=== PATIENT | female | born 1945 | race Caucasian/White ===

== ENCOUNTER 2020-11-07 10:17 | Emergency (ER) | payer MEDICARE, MEDICAID ==
[~2020-11-07] VITALS: Ht 152.4 cm; Wt 61.4 kg
[~2020-11-07 10:17] MED LIST: AMOXICILLIN 50500 MG PO; ASPIRIN 81M81 MG/TA2 PO; EPA FISH OIL1000 MG PO
[2020-11-07 10:33] VITALS: TEMP 97.5
[2020-11-07] MEDS ORDERED: MOTRIN 200200 MG/TAB PO (10:38)
[2020-11-07 11:10] LABS: BASO % 0.3 % (0.0-2.0); EOS # 0.1 (0.0-0.7); EOS % 0.7 % (0-4.0); GRAN % 82.8 % (42.2-75.2); LYMPH # 0.8 (1.2-3.4); LYMPH % 10.9 % (20.0-51.0); MEAN CELL VOLUME 65 fl (80.0-100.0); MEAN CORPUSCULAR HGB CONC 24 g/dl (33.0-37.0); MEAN PLATELET VOLUME 8.7 fl (7.4-10.4); MONO # 0.4 (0.1-0.6); PLATELET COUNT 313 K/mm3 (130-400); RED BLOOD COUNT 2.69 M/mm3 (4.10-5.30); REDCELL DISTRIBUTION WIDTH-CV 20.7 % (11.5-14.5)
[2020-11-07 11:20] LABS: MEAN CORPUSCULAR HEMOGLOBIN 16 pg (27.0-31.0)
[2020-11-07 11:21] LABS: HEMATOCRIT 17.6 % (37.0-47.0); HEMOGLOBIN 4.3 g/dl (12.5-16.0)
[2020-11-07 11:26] LABS: ALBUMIN 3.2 gm/dL (3.5-5.0); BILIRUBIN,TOTAL 0.7 mg/dL (0.0-1.0); C-REACTIVE PROTEIN 6.1 mg/dL (0.0-0.9); CALCIUM 8.1 mg/dL (8.4-10.2); CREATININE, serum 0.83 (0.52-1.25); POTASSIUM 3.6 mmol/L (3.4-5.0); TOTAL PROTEIN 6.4 gm/dL (6.4-8.2)
--- NOTE | 2020-11-07 15:45 | NUR ---
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 ANGELINA met with patient in person with family on the phone to discuss the option of hospice care. Dr. Joseph assisted in facilitating discussion. Patient chooses to utilize hospice services. ANGELINA contacted hospice service Jayden Clayton. Jayden Lowery did return phone call to obtain further information about patient. ANGELINA still awaiting return call for verification of services. ANGELINA passed on information to patient's nurse. Social work will continue to follow.
--- NOTE | 2020-11-07 16:05 | NUR ---
[facility] was contacted [facility] providing that they would not be able to provide services until they obtained information from patient's PCP. [facility] staff stated they would like to obtain patient information via fax as well as family contact number in order to know who to speak to in regards to future potential services once information is obtained from PCP. Patient will be transfering to her home from ER due to request not to be admitted. Nothing further.
[2020-11-07 17:30] VITALS: BP 126/65; PULSE 84
== END 2020-11-07 17:45 | disposition home or self-care (01) ==
LOC: COL.ER 10:17 → SURG 13:58 → COL.ER 13:58
PROVIDERS: Physician Assistant
DX: I26.99 Other pulmonary embolism without acute cor pulmonale (principal); D64.9 Anemia, unspecified; K63.89 Other specified diseases of intestine; F17.210 Nicotine dependence, cigarettes, uncomplicated; Z20.822 Contact with and (suspected) exposure to COVID-19; Z86.73 Personal history of transient ischemic attack (TIA), and cerebral infarction without residual deficits; Z79.82 Long term (current) use of aspirin
CPT/HCPCS: 99222; J7030; Q9967